=== PATIENT | female | born 1955 | race Caucasian/White ===

== ENCOUNTER 2021-05-24 07:36 | Day surgery (SDC) | payer MEDICARE ==
[~2021-05-24] VITALS: Ht 157.5 cm; Wt 92.0 kg
[2021-05-24] MEDS ORDERED: LIDOCAINE 2%, 20ML ONE (07:40)
== END 2021-05-24 08:52 | disposition home or self-care (01) ==
LOC: CACL 07:36
PROVIDERS: ATTEND Internal Medicine Cardiovascular Disease
DX: R00.0 Tachycardia, unspecified (principal); R00.2 Palpitations; I10 Essential (primary) hypertension; E03.9 Hypothyroidism, unspecified; Z79.82 Long term (current) use of aspirin; Z79.890 Hormone replacement therapy; Z79.899 Other long term (current) drug therapy; Z88.5 Allergy status to narcotic agent; Z88.8 Allergy status to other drugs, medicaments and biological substances
CPT/HCPCS: 33285; C1764